=== PATIENT | male | born 1980 | race Caucasian/White ===

== ENCOUNTER 2017-03-31 20:27 | Emergency (ER) | payer OTHER, BC ==
[2017-03-31 20:40] LABS: POC GLUCOSE 96 mg/dL (70-99)
[2017-03-31 21:23] LABS: ADD MAN DIFF? NO
[2017-03-31 21:27] LABS: BASO % 0 % (0-3); EOS % 0 % (0-3); HEMATOCRIT 43.1 % (39.0-53.0); HEMOGLOBIN 14.8 g/dL (13.0-17.5); LYMPH # 0.9 x10^3/uL (1.0-4.8); LYMPH % 12 % (24-48); MEAN CORPUSCULAR HEMOGLOBIN 31 pg (25-35); MEAN CORPUSCULAR HGB CONC 34 g/dL (31-37); MEAN CORPUSCULAR VOLUME 90 fL (79-100); MONO # 0.6 x10^3/uL (0.0-1.1); MONO % 8 % (0-9); NEUT # 5.8 x10^3uL (1.8-7.7); NEUT % 79 % (31-73); PLATELET COUNT 240 x10^3/uL (140-400); RED BLOOD COUNT 4.78 x10^6/uL (4.30-5.70); RED CELL DISTRIBUTION WIDTH 12.5 % (11.5-14.5); WHITE BLOOD COUNT 7.3 x10^3/uL (4.0-11.0)
[2017-03-31] MEDS: IV NORMAL SALINE 1000ML BAG 1,000 ML IV ×2 (21:27)
[2017-03-31 21:28] LABS: BILIRUBIN,URINE NEGATIVE (NEG); CLARITY,URINE CLEAR; COLOR,URINE YELLOW; GLUCOSE,URINE 100 mg/dL (NEG); NITRITE,URINE NEGATIVE (NEG); PROTEIN,URINE NEGATIVE (NEG-TRACE)
[2017-03-31 21:35] LABS: BACTERIA,URINE 0 /HPF (0-FEW); BARBITURATES NEG (NEG); BENZODIAZEPINES NEG (NEG); CANNABINOIDS NEG (NEG); COCAINE NEG (NEG); METHADONE NEG (NEG); OPIATES NEG (NEG); PHENCYCLIDINE NEG (NEG); RBC,URINE 0 /HPF (0-2); SQUAMOUS EPITHELIAL CELL,UR OCC /LPF; WBC,URINE 0 /HPF (0-4)
[2017-03-31 21:36] LABS: AMPHETAMINE/METHAMPHETAMINE NEG (NEG); ETHANOL, URINE NEG (NEG)
[2017-03-31] MEDS: IBUPROFEN 600 MG TABLET. PO ×2 (21:39)
[2017-03-31 21:59] LABS: POC GLUCOSE 194 mg/dL (70-99)
[2017-03-31 22:49] LABS: POC GLUCOSE 316 mg/dL (70-99)
[2017-03-31 23:17] LABS: ANION GAP 11 (6-14); BLOOD UREA NITROGEN 15 mg/dL (8-26); CALCIUM 8.1 mg/dL (8.5-10.1); CARBON DIOXIDE 27 mmol/L (21-32); CHLORIDE 98 mmol/L (98-107); CREATININE 1.2 mg/dL (0.7-1.3); GFR 67.4; GLUCOSE 91 mg/dL (70-99); MAGNESIUM 1.9 mg/dL (1.8-2.4); POTASSIUM 3.8 mmol/L (3.5-5.1); SODIUM 136 mmol/L (136-145)
[2017-04-04 06:58] LABS: POC GLUCOSE 112 mg/dL (70-99)
== END 2017-03-31 23:14 | disposition home or self-care (01) ==
LOC: ER 20:27
DX: E10.649 Type 1 diabetes mellitus with hypoglycemia without coma (principal); Z86.73 Personal history of transient ischemic attack (TIA), and cerebral infarction without residual deficits
CPT/HCPCS: 36415; 80048; 80307; 81001; 82962; 83735; 85025; 96360; 99284; J7030

== ENCOUNTER 2019-12-11 01:56 | Emergency (ER) | payer MEDICARE, OTHER ==
[~2019-12-11] VITALS: Ht 180.3 cm; Wt 88.6 kg
[~2019-12-11 01:56] MED LIST: BUPR300T3 PO; LAMO300T PO; LISI-334 PO; TRAZ-118 PO; VENL150C PO
--- NOTE | 2019-12-11 02:05 | PHYS DOC ---
Past Medical History Past Medical History: Depression, Diabetes-Type I Past Surgical History: Other Additional Past Surgical Histo: nose, osteomyelitis, hand, oral surgery implant Smoking Status: Never Smoker Alcohol Use: None Drug Use: None General Adult EDM: Chief Complaint: HYPOGLYCEMIA HPI: HPI: 39-year-old male past medical history significant for insulin-dependent diabetes, presents the ED brought in by EMS with concern for hypoglycemia. EMS reports they were at patient's house early this morning around 10 AM for a low glucose reading. Patient was given 250 cc of D10, patient's mental status improved and he refused to return to the ED. EMS was called in the evening again for a low glucose. Patient was found confused and 200 cc of D10 were given IV-EMS witnessed patient having a tonic-clonic seizure, ems lost IV access.. Patient's mental status improved such that he was talking but still confused. Patient uses an insulin pump and this was removed by EMS prior to arrival. Patient states he is on 1 unit of insulin per 12 g of carbs and is on a basal rate of 20 units. Patient denies any alcohol or drug use. Is not on any oral anti-glycemic's. Denies any fever. Review of Systems: Review of Systems: Constitutional: Denies fever or chills. [] Eyes: Denies change in visual acuity. [] HENT: Denies nasal congestion or sore throat. [] Respiratory: Denies cough or shortness of breath. [] Cardiovascular: Denies chest pain or edema. [] GI: Denies abdominal pain, nausea, vomiting, bloody stools or diarrhea. [] : Denies dysuria. [] Musculoskeletal: Denies back pain or joint pain. [] Integument: Denies rash. [] Neurologic: Denies headache, focal weakness or sensory changes. [] Endocrine: Denies polyuria or polydipsia. [] Lymphatic: Denies swollen glands. [] Psychiatric: Denies depression or anxiety. [] Heart Score: Risk Factors: Risk Factors: DM, Current or recent (<one month) smoker, HTN, HLP, family history of CAD, obesity. Risk Scores: Score 0 - 3: 2.5% MACE over next 6 weeks - Discharge Home Score 4 - 6: 20.3% MACE over next 6 weeks - Admit for Clinical Observation Score 7 - 10: 72.7% MACE over next 6 weeks - Early Invasive Strategies Allergies: Allergies: Allergies Coded Allergies Type Severity Reaction Last Updated Verified No Known Drug Allergies 04/19/13 No Physical Exam: PE: Constitutional: Confused, diaphoretic, speaking in full sentences HENT: Normocephalic, atraumatic, Eyes: EOMI, conjunctiva normal, Neck: Normal range of motion, supple, no stridor. [] Cardiovascular:Heart rate regular rhythm, no murmur [] Lungs & Thorax: Bilateral breath sounds clear to auscultation [] Abdomen: Bowel sounds normal, soft, insulin pump not attached Skin: Warm, dry, no erythema, no rash. [] Extremities: No tenderness, no cyanosis, no clubbing, ROM intact, no edema. [] Neurologic: Alert but confused on arrival, normal motor function, normal sensory function, no focal deficits noted. [] EKG: EKG: Sinus rhythm at 70 bpm, no axis deviation, normal intervals, no T wave inversions, no ST elevations or ST depressions Radiology/Procedures: Radiology/Procedures: []IMAGING REPORT Signed PATIENT: NIELS WERNER V ACCOUNT: [id number] : 1980 LOCATION: ER AGE: 39 SEX: M EXAM STATUS: PRE ER ORD. PHYSICIAN: MIEK EDMONDS DO REASON: ams PROCEDURE: PORTABLE CHEST 1V AP chest x-ray HISTORY: Altered mental status. FINDINGS: Heart size upper limits normal. Mediastinal silhouette is normal. Mild upper thoracic scoliosis. No pneumothorax, pulmonary opacities or pleural effusions. IMPRESSION: No acute process. Electronically signed by: Mary Beth Rand MD (12/11/2019 4:29 AM) [facility] DICTATED and SIGNED BY: MARY BETH RAND MD DATE: 12/11/19 0429 IMAGING REPORT Signed PATIENT: NIELS WERNER V ACCOUNT: [id number] : 1980 LOCATION: ER AGE: 39 SEX: M EXAM STATUS: PRE ER ORD. PHYSICIAN: MIKE EDMONDS DO REASON: ams PROCEDURE: CT HEAD WO CONTRAST CT head without contrast PQRS statement: CT scans at this facility use dose reduction including either automated exposure control, iterative reconstructions, and /or weight based radiation dosing via mA and kV modification when appropriate to reduce radiation dose to as low as reasonably achievable. HISTORY: Altered mental status. COMPARISON: CT head February 16, 2014. FINDINGS: Mild cerebellum tonsil ectopia foramen magnum stable. No intracranial hemorrhage, mass, hydrocephalus, extra-axial fluid collections or infarction. No acute ischemic changes. Orbits, mastoids and bones unremarkable. IMPRESSION: No acute intracranial CT abnormality. Electronically signed by: Mary Beth Rand MD (12/11/2019 3:29 AM) [facility] DI[facility]ATED and SIGNED BY: MARY BETH RAND MD DATE: 12/11/19 0329 Course & Med Decision Making: Course & Med Decision Making Pertinent Labs and Imaging studies reviewed. (See chart for details) Concern for uncontrolled diabetes with hyperglycemia. Patient with hourly [id number] glucose checks in ED that required multiple re-dosing of dextrose, we will also given. On reevaluation patient awake and alert with medical surgeon making capacity, has no active complaints, denies any SI or HI. Patient tolerating oral intake. Patient refuses my request to admit. Patient states he has a continuous glucose monitor at home and glucose strips for CBGs. Has no active complaints or fever. Has medical decision-making capacity and wishes to be discharged. Reports he has follow-up with his primary care physician Dr. Hernan Monet at on December 30. Encouraged pt to have this appointment moved to the next 24 to 48 hours. Strict ED return precautions were given for hypoglycemia or fever. Encouraged urgent outpatient follow-up with PMD. Life- threatening processes were considered but are low suspicion at this time, given history and physical exam. Pt was educated on all prescription medications and adverse effects. All patient's questions were answered and pt was stable at time of discharge. Life/limb-threatening differential includes but is not limited to, surgical abdomen (appendicitis, cholecystitis, diverticulitis, inflammatory bowel disease, abscess, perforation), meningitis, encephalitis, Pedro's angina, necrotizing fasciitis, endocarditis, life-threatening rash, viral syndrome, gynecologic and urologic emergencies (endometritis, ovarian/testicular torsion, TOA, obstructive nephropathy, prostatitis), head and neck abscess, sepsis or shock, or respiratory failure. I spoken with the patient and her caregivers. I explained the patient's condition, diagnoses and treatment plan based on the information available to me at this time. I have answered the patient and her caregiver's questions and addressed any concerns. The patient and her caregivers have a good understanding of patient's diagnosis, condition and treatment plan as can be expected at this point. Vital signs have been stable. Patient's condition is stable and appropriate for discharge from the emergency department. Patient will pursue further outpatient evaluation with primary care physician or other designated or consulting physician as outlined in the discharge instructions. The patient and/or caregivers are agreeable to this plan of care and follow-up instructions have been explained in detail. The patient and/or caregivers have received these instructions in written form and have expressed an understanding of the discharge instructions. The patient and/or caregivers are aware that any significant change of condition or worsening of symptoms should prompt immediate return to this or the closest emergency department or call to 911. Yang Disclaimer: Yang Disclaimer: This electronic medical record was generated, in whole or in part, using a voice recognition dictation system. Departure Departure Impression: Primary Impression: Hypoglycemia Disposition: 01 DC HOME SELF CARE/HOMELESS Condition: STABLE Referrals: TRINI ALVARENGA (PCP) Patient Instructions: Diabetes Meal Planning Guide, Hypoglycemia (Low Blood Sugar) Additional Instructions: EMERGENCY DEPARTMENT GENERAL DISCHARGE INSTRUCTIONS Thank you for coming to [facility] Emergency Department (ED) today and trusting us with you care. We trust that you had a positive experience in our Emergency Department. If you wish to speak to the department management, you may call the Director at [phone]. YOUR FOLLOW UP INSTRUCTIONS ARE FOLLOWS: 1. Do you have a private Doctor? If you do not have a private doctor, please ask for a resource list of physicians or clinics that may be able to assist you with follow up care. 2. The Emergency Physicain has interpreted your x-rays. The X-Ray specialist will also review them. If there is a change in the findings, you will be notified in 48 hours when at all possible. 3. A lab test or culture has been done, your results will be reviewed and you will be notified if you need a change in treatment. ADDITIONAL INSTRUCTIONS AND INFORMATION: 1. Your care today has been supervised by a physician who is specially trained in emergency care. Many problems require more than one evaluation for a complete diagnosis and treatment. We recommend that you schedule your follow up appointment as recommended to ensure complete treatment of you illness or injury. If you are unable to obtain follow up care and continue to have a problem, or if your condition worsens, we recommend that you return to the ED. 2. We are not able to safely determine your condition over the phone nor are we able to give sound medical advice over the phone. For these safety reasons, if you call for medical advice we will ask you to come to the ED for further evaluation. 3. If you have any questions regarding these discharge instructions please call the ED at [phone]. SAFETY INFORMATION: In the interest of safety, wellness, and injury prevention; we encourage you to wear your sealbelt, if you smoke; quite smoking, and we encourage family to use a protective helmet for bicycling and other sporting events that present an increased risk for head injury. IF YOUR SYMPTOMS WORSEN OR NEW SYMPTOMS DEVELOP, OR YOU HAVE CONCERNS ABOUT YOUR CONDITION; OR IF YOUR CONDITION WORSENS WHILE YOU ARE WAITING FOR YOUR FOLLOW UP APPOINTMENT; EITHER CONTACT YOUR PRIMARY CARE DOCTOR, THE PHYSICIAN WHOSE NAME AND NUMBER YOU WERE GIVEN, OR RETURN TO THE ED IMMEDIATELY. [facility] DO Dec 11, 2019 02:05
[2019-12-11] MEDS ORDERED: ONDANSETRON PF 4 MG/2 ML VIAL. ONE (02:23)
[2019-12-11] MEDS ORDERED: DEXTROSE 50% 25 GM / 50ML DISP.SYRIN. IV ONE (02:30)
[2019-12-11] MEDS ORDERED: IV DEXTROSE 10% 500 ML IV ONE (02:30)
[2019-12-11] MEDS ORDERED: GLUCAGON,HUMAN RECOMBINANT 1 MG/ML VIAL. IV ONE (02:30)
[2019-12-11 02:54] LABS: BASO % 0 % (0-3); EOS % 0 % (0-3); HEMATOCRIT 39.1 % (39.0-53.0); HEMOGLOBIN 13.2 g/dL (13.0-17.5); LYMPH # 0.5 x10^3/uL (1.0-4.8); LYMPH % 8 % (24-48); MEAN CORPUSCULAR HEMOGLOBIN 33 pg (25-35); MEAN CORPUSCULAR HGB CONC 34 g/dL (31-37); MEAN CORPUSCULAR VOLUME 97 fL (79-100); MONO # 0.4 x10^3/uL (0.0-1.1); MONO % 7 % (0-9); NEUT # 4.9 x10^3/uL (1.8-7.7); NEUT % 85 % (31-73); PLATELET COUNT 262 x10^3/uL (140-400); RED BLOOD COUNT 4.03 x10^6/uL (4.30-5.70); RED CELL DISTRIBUTION WIDTH 13.7 % (11.5-14.5); WHITE BLOOD COUNT 5.8 x10^3/uL (4.0-11.0)
[2019-12-11 03:13] LABS: CREATININE 1.2 mg/dL (0.7-1.3); GFR 66.7; POTASSIUM 3.8 mmol/L (3.5-5.1)
[2019-12-11 03:20] LABS: ALBUMIN 3.6 g/dL (3.4-5.0); ALBUMIN/GLOBULIN RATIO 1.9 (1.0-1.7); TOTAL BILIRUBIN 0.4 mg/dL (0.2-1.0); TOTAL PROTEIN 5.5 g/dL (6.4-8.2)
--- NOTE | 2019-12-11 03:32 | RAD ---
CT head without contrast PQRS statement: CT scans at this facility use dose reduction including either automated exposure control, iterative reconstructions, and /or weight based radiation dosing via mA and kV modification when appropriate to reduce radiation dose to as low as reasonably achievable. HISTORY: Altered mental status. COMPARISON: CT head February 16, 2014. FINDINGS: Mild cerebellum tonsil ectopia foramen magnum stable. No intracranial hemorrhage, mass, hydrocephalus, extra-axial fluid collections or infarction. No acute ischemic changes. Orbits, mastoids and bones unremarkable. IMPRESSION: No acute intracranial CT abnormality. Electronically signed by: Thompson Rand MD (12/11/2019 3:29 AM) [facility]
[2019-12-11 04:15] LABS: BILIRUBIN,URINE NEGATIVE (NEG); CLARITY,URINE CLEAR; COLOR,URINE YELLOW; NITRITE,URINE NEGATIVE (NEG); PH,URINE 5.5 (<5.0-8.0); PROTEIN,URINE NEGATIVE (NEG-TRACE); UROBILINOGEN,URINE 0.2 mg/dL (0.2 mg/dL)
--- NOTE | 2019-12-11 04:32 | RAD ---
AP chest x-ray HISTORY: Altered mental status. FINDINGS: Heart size upper limits normal. Mediastinal silhouette is normal. Mild upper thoracic scoliosis. No pneumothorax, pulmonary opacities or pleural effusions. IMPRESSION: No acute process. Electronically signed by: Thompson Rand MD (12/11/2019 4:29 AM) [facility]
[2019-12-11 04:45] LABS: BACTERIA,URINE 0 /HPF (0-FEW)
[2019-12-11 06:30] VITALS: BP 146/78
--- NOTE | 2019-12-11 07:28 | EKG ---
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
== END 2019-12-11 06:33 | disposition home or self-care (01) ==
LOC: ER 01:56
DX: E10.649 Type 1 diabetes mellitus with hypoglycemia without coma (principal); R41.0 Disorientation, unspecified; R56.9 Unspecified convulsions; F32.9 Major depressive disorder, single episode, unspecified; Z98.890 Other specified postprocedural states
CPT/HCPCS: 36415; 70450; 71045; 80053; 81001; 82550; 82962; 84484; 85025; 93005; 96365; 96375; 99285; G0480; J1610; J3490